=== PATIENT | male | born 1960 | race Caucasian/White ===

== ENCOUNTER 2023-09-24 04:16 | Day surgery (SDC) | payer OTHER ==
[2023-09-13 14:42] VITALS: BMI 23.8
[2023-09-24] MEDS ORDERED: ceFAZolin SODIUM 1 GM VIAL ONE (06:30)
[2023-09-24] MEDS ORDERED: BUPIVACAINE HCL/PF 0.25% (2.5MG/ML) 10 ML VIAL ONE (07:09)
[2023-09-24] MEDS ORDERED: HEPARIN NA (PORCINE) 5,000 UNITS/ML 1ML VIAL ONE (07:09)
[2023-09-24] MEDS: cefOXitin SODIUM 2 GM VIAL (RESTRICTED TO ID) IVPB ONE ×2 (07:29→08:10)
[2023-09-24] MEDS: BUPIVACAINE HCL/PF 0.25% (2.5MG/ML) 10 ML VIAL IJ ONE ×4 (07:29→08:35)
[2023-09-24] MEDS: ceFAZolin SODIUM 1 GM VIAL IVPB ONE (07:29)
[2023-09-24] MEDS ORDERED: ONDANSETRON 4 MG/2 ML VIAL ONE (07:30)
[2023-09-24] MEDS ORDERED: SODIUM CHLORIDE 0.9% P/F 10 ML VIAL IJ ONE (07:30)
[2023-09-24] MEDS ORDERED: CEFAZOLIN SODIUM 2 GM in DEXTROSE 5%-WATER 100 ML IVPB ONE (07:30)
[2023-09-24] MEDS ORDERED: DEXAMETHASONE SOD PHOSPHATE 4 MG/1 ML VIAL ONE (07:30)
[2023-09-24] MEDS ORDERED: METOCLOPRAMIDE HCL INJECTION 10 MG/2 ML VIAL ONE (07:30)
[2023-09-24] MEDS ORDERED: KETOROLAC TROMETHAMINE 30 MG/1 ML VIAL ONE (07:30)
[2023-09-24] MEDS ORDERED: LIDOCAINE HCL/PF 2% SDV 5ML VIAL ONE (07:30)
[2023-09-24] MEDS ORDERED: SEVOFLURANE 250 ML BTL ONE (07:31)
[2023-09-24] MEDS ORDERED: ACETAMINOPHEN INJECTION 100 ML IVPB ONE (07:31)
[2023-09-24] MEDS ORDERED: cefOXitin SODIUM 2 GM VIAL (RESTRICTED TO ID) IVPB ONE (07:32)
[2023-09-24] MEDS ORDERED: SUCCINYLCHOLINE CHLORIDE 200 MG/10 ML SYRINGE ONE (07:34)
[2023-09-24] MEDS ORDERED: ROCURONIUM BROMIDE 50 MG/5 ML SYRINGE ONE ×2 (07:35→08:39)
[2023-09-24] MEDS ORDERED: PROPOFOL 40 ML ONE (07:37)
[2023-09-24] MEDS ORDERED: MIDAZOLAM HCL 2 MG/2 ML SINGLE DOSE VIAL ONE (07:38)
[2023-09-24] MEDS ORDERED: HYDROmorphone HCl 2 MG/ML VIAL ONE (08:33)
[2023-09-24] MEDS ORDERED: SUGAMMADEX SODIUM 200 MG/2 ML VIAL ONE ×2 (08:59→09:30)
[2023-09-24] MEDS ORDERED: ONDANSETRON 4 MG/2 ML VIAL IVPUSH PRN (10:14)
[2023-09-24] MEDS ORDERED: oxyCODONE HCL 5 MG TABLET PO PRN (10:14)
[2023-09-24] MEDS ORDERED: ACETAMINOPHEN 325 MG TABLET (FP) PO PRN (10:14)
[2023-09-24] MEDS ORDERED: LACTATED RINGERS SOLUTION 1,000 ML IV SCH (10:15)
[2023-09-24 11:17] VITALS: PULSE 66; RESP 18
[2023-09-24 13:58] VITALS: BP 120/68; TEMP 97.6
== END 2023-09-24 13:25 | disposition home or self-care (01) ==
LOC: JASU-SURG 04:16
PROVIDERS: ATTEND Surgery
PROC: 8E0W4CZ Robotic Assisted Procedure of Trunk Region, Percutaneous Endoscopic Approach (ICD-10-PCS; 2023-09-24)
PROC: 0FT44ZZ Resection of Gallbladder, Percutaneous Endoscopic Approach (ICD-10-PCS; principal; 2023-09-24 08:00)
DX: K82.4 Cholesterolosis of gallbladder (principal)
CPT/HCPCS: 47562; S2900; 86850; 86900; 86901; 88304-TC; 94760; J0131; J1644